=== PATIENT | male | born 1945 | race Caucasian/White ===

== ENCOUNTER → 2016-10-02 | Outpatient (CLI) | payer OTHER ==
[~2016-10-02] MED LIST: ALBU2.5V NPPB; ASPI-496 PO; ATOR80TA75 PO; DIVA250T PO; DONE10TA30 PO; GABA-827 PO; LEVO75TA5 PO; METF500T4 PO; METO200T3 PO; PRED20TA PO; REGADENOSON 0.4 MG/5 ML SYRINGE ONE; TAMS0.4C2 PO; TOPI100T94 PO
== END | disposition home or self-care (01) ==
LOC: CFH 08:39
PROVIDERS: ATTEND Internal Medicine Cardiovascular Disease
DX: I25.89 Other forms of chronic ischemic heart disease (principal); Z95.1 Presence of aortocoronary bypass graft
CPT/HCPCS: 78452; 93017; A9502; J2785

== ENCOUNTER 2017-03-06 05:54 | Day surgery (SDC) | payer OTHER ==
[2017-03-05 13:32] LABS: HEMATOCRIT 42.2 % (39.2-51.8); HEMOGLOBIN 14.1 g/dL (13.7-18.0)
[2017-03-05 13:36] LABS: ASPARTATE AMINO TRANSFERASE 8 U/L (15-37); BLOOD UREA NITROGEN 23 mg/dL (7-18)
[~2017-03-06] VITALS: Ht 162.6 cm; Wt 82.3 kg
[~2017-03-06 05:54] MED LIST changes: +ATOR-2 PO; -ATOR80TA75 PO; +DIVA500T4 PO; -DONE10TA30 PO; +DONE10TA56 PO; +FINA5TAB4 PO; +FLUO40CA2 PO; +HYDR25TA11 PO; +HYDR50TA13 PO; -METO200T3 PO; +METO200T5 PO; +PROP60TA PO; -REGADENOSON 0.4 MG/5 ML SYRINGE ONE; +TOPI100T8 PO; -TOPI100T94 PO
[2017-03-06] MEDS ORDERED: INSULIN ASPART 100 UNITS/ML, PEN SQ-INSULIN SCH (06:00)
[2017-03-06 06:10] VITALS: BP_SYST 131; BP_SYST 142; BP_DIAS 87; BP_DIAS 91
[2017-03-06] MEDS ORDERED: CHLORHEXIDINE MOUTHWASH 15 ML UDC MM SCH (06:30)
[2017-03-06] MEDS ORDERED: ONDANSETRON 2MG/ML, 2ML ONE (06:44)
[2017-03-06] MEDS ORDERED: SUCCINYLCHOLINE 20 MG/ML, 10ML ONE (06:44)
[2017-03-06] MEDS ORDERED: DEXAMETHASONE 4 MG/ML, 1ML ONE (06:44)
[2017-03-06] MEDS ORDERED: PROPOFOL 10 MG/ML, 20ML ONE ×2 (06:44→07:57)
[2017-03-06] MEDS ORDERED: FENTANYL PF 100 MCG/2ML ONE ×3 (06:45→09:19)
[2017-03-06] MEDS ORDERED: DIPHENHYDRAMINE 50 MG/ML, 1ML ONE (08:52)
[2017-03-06] MEDS ORDERED: OXYcodone 5 MG/5 ML ORAL.SOL UDC ONE ×2 (08:52→09:19)
[2017-03-06] MEDS ORDERED: MUPIROCIN OINT 2%, 22GM TP SCH (09:00)
[2017-03-06] MEDS ORDERED: SODIUM CHLORIDE FLUSH 10ML SYR IVF SCH (09:00)
[2017-03-06] MEDS ORDERED: OXYcodone 5 MG/5 ML ORAL.SOL UDC PO PRN ×2 (09:30)
[2017-03-06] MEDS ORDERED: LABETALOL 5MG/ML, 20ML IV PRN (09:30)
[2017-03-06] MEDS ORDERED: DIPHENHYDRAMINE 50 MG/ML, 1ML IVPush ONE (09:30)
[2017-03-06] MEDS ORDERED: PROMETHAZINE 25 MG/ML, 1ML IV PRN (09:30)
[2017-03-06] MEDS ORDERED: MIDAZOLAM 1 MG/ML, 2ML IV PRN (09:30)
[2017-03-06] MEDS ORDERED: HYDROmorphone 1 MG/ML, 1ML IV PRN ×2 (09:30)
[2017-03-06] MEDS ORDERED: FENTANYL PF 100 MCG/2ML IV PRN ×2 (09:30)
[2017-03-06] MEDS ORDERED: ONDANSETRON 2MG/ML, 2ML IVPush PRN ×2 (09:30)
[2017-03-06] MEDS ORDERED: hydrALAzine 20 MG/ML, 1ML IV PRN (09:30)
[2017-03-07] MEDS ORDERED: CEFUROXIME 1.5 GM in SODIUM CHLORIDE 0.9% 50 ML IVPB PRN (07:30)
== END 2017-03-06 14:01 | disposition home or self-care (01) ==
LOC: 5SO 05:54 → UNDOADMIN 05:54 → OUT 05:54 → CCU 07:20 → 5SO 07:20 → EDSTATUS 07:30 → 5SO 10:18 → CCU 10:18 → OUT 14:01 → UNDODISIN 14:01
PROVIDERS: ATTEND Thoracic Surgery (Cardiothoracic Vascular Surgery)
DX: T82.847A Pain due to cardiac prosthetic devices, implants and grafts, initial encounter (principal); I10 Essential (primary) hypertension; N40.0 Benign prostatic hyperplasia without lower urinary tract symptoms; F03.90 Unspecified dementia, unspecified severity, without behavioral disturbance, psychotic disturbance, mood disturbance, and anxiety; E11.9 Type 2 diabetes mellitus without complications; Z95.1 Presence of aortocoronary bypass graft; G89.28 Other chronic postprocedural pain; Y83.8 Other surgical procedures as the cause of abnormal reaction of the patient, or of later complication, without mention of misadventure at the time of the procedure; Y92.89 Other specified places as the place of occurrence of the external cause
CPT/HCPCS: 36415; 71010; 71020; 80053; 81003; 82962; 83036; 85025; 85610; 85730; 86850; 86900; 86923; 93005; J0697; J1100; J2405; J2704; J3010; J0330; J1200

== ENCOUNTER 2017-09-14 09:23 | Emergency (ER) | payer OTHER ==
[~2017-09-14] VITALS: Ht 165.1 cm; Wt 97.8 kg
[~2017-09-14 09:23] MED LIST changes: +CLON0.5T PO; +METO200T47 PO; -METO200T5 PO; +OLAN5TAB9 PO; +ROPI0.2537 PO
[2017-09-14 09:25] VITALS: BP 143/86
[2017-09-14] MEDS ORDERED: METHOCARBAMOL 750 MG TABLET PO ONE (10:00)
[2017-09-14] MEDS ORDERED: KETOROLAC 30 MG/1 ML IM ONE (10:00)
[2017-09-14] MEDS ORDERED: OXYcodone/APAP 5/325MG TABLET PO ONE (10:00)
[2017-09-14] MEDS ORDERED: OXYcodone/APAP 5/325MG TABLET ONE (10:01)
[2017-09-14] MEDS ORDERED: METHOCARBAMOL 750 MG TABLET ONE (10:02)
[2017-09-14] MEDS ORDERED: KETOROLAC 30 MG/1 ML ONE (10:02)
== END 2017-09-14 11:20 | disposition home or self-care (01) ==
LOC: ED 10:18
DX: G89.29 Other chronic pain (principal); M54.5 Low back pain; I71.4 Abdominal aortic aneurysm, without rupture; E11.9 Type 2 diabetes mellitus without complications; E78.5 Hyperlipidemia, unspecified; I10 Essential (primary) hypertension; I25.10 Atherosclerotic heart disease of native coronary artery without angina pectoris; J44.9 Chronic obstructive pulmonary disease, unspecified; M19.90 Unspecified osteoarthritis, unspecified site; Z95.1 Presence of aortocoronary bypass graft; Z98.1 Arthrodesis status
CPT/HCPCS: 72110; 96372; 99284; J1885

== ENCOUNTER → 2017-11-25 | Outpatient (CLI) | payer OTHER ==
[~2017-11-25] MED LIST changes: -METF500T4 PO; +METF500T5 PO
[2017-11-25 12:52] LABS: BASOPHILS # (AUTO) 0.05 x10^3/uL (0-0.1); BASOPHILS % (AUTO) 1 % (0-1); EOSINOPHILS # (AUTO) 0.39 x10^3/uL (0-0.4); EOSINOPHILS % (AUTO) 4 % (1-7); LYMPHOCYTES % (AUTO) 28 % (22-44); MD NO; MEAN CORPUSCULAR HEMOGLOBIN 33.9 pg (27.5-34.5); MEAN CORPUSCULAR HGB CONC 33.7 g/dL (33.2-36.2); MEAN CORPUSCULAR VOLUME 100.6 fL (81-97); MEAN PLATELET VOLUME 8.7 fL (7.4-10.4); MONOCYTES # (AUTO) 0.54 x10^3/uL (0.2-0.8); MONOCYTES % (AUTO) 5 % (2-9); NEUTROPHILS # (AUTO) 6.22 x10^3/uL (1.8-6.8); NEUTROPHILS % (AUTO) 62 % (42-75); PLATELET COUNT 288 x10^3/uL (130-400); RED BLOOD COUNT 4.25 x10^6/uL (4.38-5.82); RED CELL DISTRIBUTION WIDTH 13.9 % (9.4-14.8)
[2017-11-25 12:58] LABS: ALANINE AMINOTRANSFERASE 44 U/L (12-78); ALBUMIN 3.8 g/dL (3.4-5.0); ANION GAP 7 mmol/L (5-15); CALCIUM 9.1 mg/dL (8.5-10.1); CHLORIDE 104 mmol/L (98-107); CHOLESTEROL, TOTAL 167 mg/dL (140-239); CREATININE 1.16 mg/dL (0.7-1.3)
[2017-11-25 13:04] LABS: HEMOGLOBIN A1C 7.5 % (4.2-6.3)
[2017-11-25 13:08] LABS: ALKALINE PHOSPHATASE 68 U/L (45-117); BILIRUBIN,TOTAL 0.4 mg/dL (0.2-1.0); CHOL/HDL RATIO 3.5; HDL CHOL % 29 % (26-37); HDL CHOLESTEROL (DIRECT) 48 mg/dL (40-60); LDL CHOLESTEROL,CALCULATED 58 mg/dL (54-169); LDL/HDL RATIO 1.2 (0.5-3.0); MICROSCOPIC NOT IND; TOTAL PROTEIN 7.4 g/dL (6.4-8.2); TRIGLYCERIDES 307 mg/dL (50-200); VLDL CHOLESTEROL 61 mg/dL (0-25)
[2017-11-25 13:18] LABS: CULTURE INDICATED? NO
== END | disposition home or self-care (01) ==
LOC: CFH 10:16
PROVIDERS: ATTEND Family Medicine
DX: E11.8 Type 2 diabetes mellitus with unspecified complications (principal); N40.0 Benign prostatic hyperplasia without lower urinary tract symptoms; I25.10 Atherosclerotic heart disease of native coronary artery without angina pectoris; E03.9 Hypothyroidism, unspecified; E78.5 Hyperlipidemia, unspecified
CPT/HCPCS: 36415; 80053; 80061; 81003; 82043; 83036; 84153; 84443; 85025

== ENCOUNTER → 2017-11-25 | Outpatient (CLI) | payer OTHER | END | disposition home or self-care (01) | LOC: CFH 10:03 | PROVIDERS: ATTEND Family Medicine | DX: I25.10 Atherosclerotic heart disease of native coronary artery without angina pectoris (principal); I71.4 Abdominal aortic aneurysm, without rupture; F31.9 Bipolar disorder, unspecified; R94.31 Abnormal electrocardiogram [ECG] [EKG] | CPT/HCPCS: 93005 ==

== ENCOUNTER 2018-01-13 15:21 | Inpatient (IN) | payer OTHER ==
[~2018-01-13] VITALS: Ht 165.1 cm; Wt 101.4 kg
[~2018-01-13 15:21] MED LIST changes: +METF500T17 PO; -METF500T5 PO; -ROPI0.2537 PO; +ROPI0.254 PO
[2018-01-13 16:24] LABS: BASOPHILS # (AUTO) 0.05 x10^3/uL (0-0.1); BASOPHILS % (AUTO) 1 % (0-1); EOSINOPHILS # (AUTO) 0.53 x10^3/uL (0-0.4); EOSINOPHILS % (AUTO) 7 % (1-7); LYMPHOCYTES # (AUTO) 2.31 x10^3/uL (1-3.4); LYMPHOCYTES % (AUTO) 31 % (22-44); MD NO; MEAN CORPUSCULAR HEMOGLOBIN 33.4 pg (27.5-34.5); MEAN CORPUSCULAR HGB CONC 33.3 g/dL (33.2-36.2); MEAN CORPUSCULAR VOLUME 100.4 fL (81-97); MEAN PLATELET VOLUME 9.1 fL (7.4-10.4); MONOCYTES # (AUTO) 0.56 x10^3/uL (0.2-0.8); MONOCYTES % (AUTO) 7 % (2-9); NEUTROPHILS # (AUTO) 4.13 x10^3/uL (1.8-6.8); NEUTROPHILS % (AUTO) 54 % (42-75); PLATELET COUNT 240 x10^3/uL (130-400); RED BLOOD COUNT 3.89 x10^6/uL (4.38-5.82)
[2018-01-13 16:31] LABS: ANION GAP 8 mmol/L (5-15); CALCIUM 8.8 mg/dL (8.5-10.1); CHLORIDE 102 mmol/L (98-107); CREATININE 0.94 mg/dL (0.7-1.3)
[2018-01-13 17:14] LABS: MICROSCOPIC NOT IND
[2018-01-13] MEDS ORDERED: ACET-709 PO (17:20)
[2018-01-13] MEDS ORDERED: CYCL5TAB PO (17:20)
[2018-01-13] MEDS ORDERED: DICL150D4 PO (17:20)
[2018-01-13 17:27] LABS: CULTURE INDICATED? NO
[2018-01-13] MEDS ORDERED: SODIUM CHLORIDE FLUSH 10ML SYR IVF PRN (18:30)
[2018-01-13 19:00] VITALS: BP 142/89
[2018-01-13] MEDS ORDERED: LABETALOL 5MG/ML, 20ML IVPush PRN (19:00)
[2018-01-13] MEDS ORDERED: DOCUSATE 100 MG CAPSULE PO PRN (19:00)
[2018-01-13] MEDS ORDERED: ENALAPRILAT 1.25 MG/ML, 2ML IVPush PRN (19:00)
[2018-01-13] MEDS ORDERED: IBUPROFEN 600 MG TABLET PO PRN (19:00)
[2018-01-13] MEDS ORDERED: ROPINIROLE MC SCH (20:00)
[2018-01-13] MEDS ORDERED: ROPINIROLE HCL PO SCH (21:00)
[2018-01-13] MEDS: CYCLOBENZAPRINE 10 MG TABLET PO SCH (21:00)
[2018-01-13] MEDS ORDERED: ROPINIROLE HCL 0.25 MG PO SCH (21:00)
[2018-01-13] MEDS: TYLENOL WITH CODEINE HOMEMEDPO SCH (21:00)
[2018-01-13] MEDS: ROPINIROLE 0.25MG TABLET PO SCH (21:00)
[2018-01-13] MEDS ORDERED: ROPINIROLE 0.5MG TABLET ONE (21:46)
[2018-01-13] MEDS: ATORVASTATIN 80 MG TABLET PO SCH (21:52)
[2018-01-13] MEDS: DICLOFENAC SODIUM 75 MG TABLET.DR PO SCH (21:53)
[2018-01-13] MEDS: DIVALPROEX 500 MG TAB.ER.24H PO SCH (21:53)
[2018-01-13] MEDS: HEPARIN 5,000 UNITS/ML, 1ML SQ SCH (21:54)
[2018-01-13 22:46] VITALS: BP 142/89
[2018-01-14 02:23] VITALS: BP 144/88
[2018-01-14] MEDS: TYLENOL WITH CODEINE HOMEMEDPO SCH ×4 (06:00→20:09)
[2018-01-14] MEDS: HEPARIN 5,000 UNITS/ML, 1ML SQ SCH ×3 (06:36→20:04)
[2018-01-14] MEDS: LEVOTHYROXINE 75 MCG TABLET PO SCH (06:36)
[2018-01-14 07:03] VITALS: BP 140/93
[2018-01-14] MEDS: DONEPEZIL 10 MG TABLET PO SCH (08:57)
[2018-01-14] MEDS: DOCUSATE 100 MG CAPSULE PO SCH ×2 (08:58→20:04)
[2018-01-14] MEDS: PROPRANOLOL 60 MG TABLET PO SCH (08:58)
[2018-01-14] MEDS: ASPIRIN 81 MG TABLET EC PO SCH (08:58)
[2018-01-14] MEDS: DIVALPROEX 500 MG TAB.ER.24H PO SCH ×2 (08:58→20:04)
[2018-01-14] MEDS: TAMSULOSIN 0.4 MG CAP.ER.24H PO SCH (08:58)
[2018-01-14] MEDS: CYCLOBENZAPRINE 10 MG TABLET PO SCH ×2 (08:58→20:05)
[2018-01-14] MEDS: DICLOFENAC SODIUM 75 MG TABLET.DR PO SCH ×2 (08:59→20:05)
[2018-01-14] MEDS: FLUOXETINE HCL 20 MG CAPSULE PO SCH (08:59)
[2018-01-14] MEDS: POLYETHYLENE GLYCOL 17 GM PACKET PO SCH (09:58)
[2018-01-14] MEDS: ACETAMINOPHEN 325 MG TABLET PO PRN ×2 (11:25→20:19)
[2018-01-14 13:45] VITALS: BP 132/88
[2018-01-14 19:38] VITALS: BP 157/94
[2018-01-14] MEDS: ATORVASTATIN 80 MG TABLET PO SCH (20:05)
[2018-01-14] MEDS: ROPINIROLE 0.25MG TABLET PO SCH (20:05)
[2018-01-15 00:14] VITALS: BP 171/82
[2018-01-15] MEDS: TYLENOL WITH CODEINE HOMEMEDPO SCH ×4 (05:41→21:00)
[2018-01-15] MEDS: HEPARIN 5,000 UNITS/ML, 1ML SQ SCH ×3 (05:45→20:51)
[2018-01-15] MEDS: LEVOTHYROXINE 75 MCG TABLET PO SCH (05:45)
[2018-01-15 07:02] VITALS: BP 139/86
[2018-01-15] MEDS: TAMSULOSIN 0.4 MG CAP.ER.24H PO SCH (09:00)
[2018-01-15] MEDS ORDERED: LISINOPRIL 10 MG TABLET PO SCH (09:00)
[2018-01-15] MEDS: POLYETHYLENE GLYCOL 17 GM PACKET PO SCH (09:29)
[2018-01-15] MEDS: DIVALPROEX 500 MG TAB.ER.24H PO SCH ×2 (09:30→20:52)
[2018-01-15] MEDS: FLUOXETINE HCL 20 MG CAPSULE PO SCH (09:30)
[2018-01-15] MEDS: PROPRANOLOL 60 MG TABLET PO SCH (09:30)
[2018-01-15] MEDS: ASPIRIN 81 MG TABLET EC PO SCH (09:30)
[2018-01-15] MEDS: CYCLOBENZAPRINE 10 MG TABLET PO SCH ×2 (09:31→20:52)
[2018-01-15] MEDS: DONEPEZIL 10 MG TABLET PO SCH (09:31)
[2018-01-15] MEDS: ACETAMINOPHEN 325 MG TABLET PO PRN (09:31)
[2018-01-15] MEDS: DOCUSATE 100 MG CAPSULE PO SCH ×2 (09:32→20:52)
[2018-01-15] MEDS: DICLOFENAC SODIUM 75 MG TABLET.DR PO SCH ×2 (09:33→20:53)
[2018-01-15 12:13] VITALS: BP 119/77
[2018-01-15 19:16] VITALS: BP 124/86
[2018-01-15] MEDS: ROPINIROLE 0.25MG TABLET PO SCH (20:53)
[2018-01-15] MEDS: ATORVASTATIN 80 MG TABLET PO SCH (20:53)
[2018-01-16 01:09] VITALS: BP 126/88
[2018-01-16] MEDS: ACETAMINOPHEN 325 MG TABLET PO PRN ×4 (02:37→21:58)
[2018-01-16] MEDS: LEVOTHYROXINE 75 MCG TABLET PO SCH (05:41)
[2018-01-16] MEDS: HEPARIN 5,000 UNITS/ML, 1ML SQ SCH ×3 (05:41→20:10)
[2018-01-16] MEDS: TYLENOL WITH CODEINE HOMEMEDPO SCH ×4 (05:43→20:12)
[2018-01-16 08:11] VITALS: BP 109/71
[2018-01-16] MEDS: PROPRANOLOL 60 MG TABLET PO SCH (08:23)
[2018-01-16] MEDS: DICLOFENAC SODIUM 75 MG TABLET.DR PO SCH ×2 (08:23→20:11)
[2018-01-16] MEDS: DIVALPROEX 500 MG TAB.ER.24H PO SCH ×2 (08:24→20:10)
[2018-01-16] MEDS: ASPIRIN 81 MG TABLET EC PO SCH (08:24)
[2018-01-16] MEDS: CYCLOBENZAPRINE 10 MG TABLET PO SCH ×2 (08:24→20:10)
[2018-01-16] MEDS: DONEPEZIL 10 MG TABLET PO SCH (08:25)
[2018-01-16] MEDS: DOCUSATE 100 MG CAPSULE PO SCH ×2 (08:25→20:11)
[2018-01-16] MEDS: FLUOXETINE HCL 20 MG CAPSULE PO SCH (08:25)
[2018-01-16] MEDS: POLYETHYLENE GLYCOL 17 GM PACKET PO SCH (08:25)
[2018-01-16] MEDS: TAMSULOSIN 0.4 MG CAP.ER.24H PO SCH (08:25)
[2018-01-16 14:24] VITALS: BP 111/70
[2018-01-16 19:46] VITALS: BP 107/69
[2018-01-16] MEDS: ATORVASTATIN 80 MG TABLET PO SCH (20:11)
[2018-01-16] MEDS: ROPINIROLE 0.25MG TABLET PO SCH (20:11)
[2018-01-17] MEDS: HYDROcodone/APAP 5/325 TABLET PO PRN ×6 (00:06→22:28)
[2018-01-17 01:06] VITALS: BP 151/94
[2018-01-17] MEDS: TYLENOL WITH CODEINE HOMEMEDPO SCH ×4 (06:00→19:33)
[2018-01-17] MEDS: HEPARIN 5,000 UNITS/ML, 1ML SQ SCH ×3 (06:15→19:31)
[2018-01-17] MEDS: LEVOTHYROXINE 75 MCG TABLET PO SCH (06:15)
[2018-01-17] MEDS: DIVALPROEX 500 MG TAB.ER.24H PO SCH ×2 (08:28→19:30)
[2018-01-17] MEDS: FLUOXETINE HCL 20 MG CAPSULE PO SCH (08:28)
[2018-01-17] MEDS: ASPIRIN 81 MG TABLET EC PO SCH (08:28)
[2018-01-17] MEDS: PROPRANOLOL 60 MG TABLET PO SCH (08:28)
[2018-01-17] MEDS: TAMSULOSIN 0.4 MG CAP.ER.24H PO SCH (08:28)
[2018-01-17] MEDS: CYCLOBENZAPRINE 10 MG TABLET PO SCH ×2 (08:28→19:30)
[2018-01-17] MEDS: DICLOFENAC SODIUM 75 MG TABLET.DR PO SCH ×2 (08:29→19:30)
[2018-01-17] MEDS: DOCUSATE 100 MG CAPSULE PO SCH ×2 (08:29→19:30)
[2018-01-17] MEDS: POLYETHYLENE GLYCOL 17 GM PACKET PO SCH (08:29)
[2018-01-17] MEDS: DONEPEZIL 10 MG TABLET PO SCH (08:29)
[2018-01-17 08:33] VITALS: BP 123/78
[2018-01-17] MEDS: ACETAMINOPHEN 325 MG TABLET PO PRN (10:49)
[2018-01-17 13:30] VITALS: BP 99/61
[2018-01-17 19:11] VITALS: BP 128/84
[2018-01-17] MEDS: ROPINIROLE 0.25MG TABLET PO SCH (19:29)
[2018-01-17] MEDS: ATORVASTATIN 80 MG TABLET PO SCH (19:30)
[2018-01-17] MEDS ORDERED: LORazepam 0.5MG TABLET PO ONE (20:00)
[2018-01-18 00:36] VITALS: BP 135/85
[2018-01-18] MEDS: HYDROcodone/APAP 5/325 TABLET PO PRN ×4 (02:28→15:07)
[2018-01-18] MEDS: LEVOTHYROXINE 75 MCG TABLET PO SCH (05:56)
[2018-01-18] MEDS: HEPARIN 5,000 UNITS/ML, 1ML SQ SCH ×3 (05:56→21:21)
[2018-01-18] MEDS: TYLENOL WITH CODEINE HOMEMEDPO SCH ×3 (05:56→15:03)
[2018-01-18 07:08] VITALS: BP 158/79
[2018-01-18] MEDS: TAMSULOSIN 0.4 MG CAP.ER.24H PO SCH (09:00)
[2018-01-18] MEDS: PROPRANOLOL 60 MG TABLET PO SCH (10:34)
[2018-01-18] MEDS: FLUOXETINE HCL 20 MG CAPSULE PO SCH (10:34)
[2018-01-18] MEDS: POLYETHYLENE GLYCOL 17 GM PACKET PO SCH (10:34)
[2018-01-18] MEDS: DONEPEZIL 10 MG TABLET PO SCH (10:35)
[2018-01-18] MEDS: DOCUSATE 100 MG CAPSULE PO SCH ×2 (10:35→21:20)
[2018-01-18] MEDS: ASPIRIN 81 MG TABLET EC PO SCH (10:35)
[2018-01-18] MEDS: DIVALPROEX 500 MG TAB.ER.24H PO SCH ×2 (10:35→21:20)
[2018-01-18] MEDS: DICLOFENAC SODIUM 75 MG TABLET.DR PO SCH ×2 (10:35→21:20)
[2018-01-18] MEDS: CYCLOBENZAPRINE 10 MG TABLET PO SCH ×2 (10:37→21:19)
[2018-01-18 13:24] VITALS: BP 95/61
[2018-01-18] MEDS: ACETAMINOPHEN 325 MG TABLET PO PRN (17:00)
[2018-01-18] MEDS ORDERED: LORazepam 0.5MG TABLET PO ONE (18:30)
[2018-01-18] MEDS ORDERED: HYDROcodone/APAP 5/325 TABLET PO PRN (18:30)
[2018-01-18 19:10] VITALS: BP 103/71
[2018-01-18] MEDS: ATORVASTATIN 80 MG TABLET PO SCH (21:19)
[2018-01-18] MEDS: APAP/CODEINE 300/30MG TABLET PO SCH (21:19)
[2018-01-18] MEDS: ROPINIROLE 0.25MG TABLET PO SCH (21:20)
[2018-01-19 01:29] VITALS: BP 101/70
[2018-01-19] MEDS: ACETAMINOPHEN 325 MG TABLET PO PRN ×2 (03:39→07:52)
[2018-01-19] MEDS: HEPARIN 5,000 UNITS/ML, 1ML SQ SCH (05:03)
[2018-01-19] MEDS: APAP/CODEINE 300/30MG TABLET PO SCH ×2 (05:03→12:44)
[2018-01-19] MEDS: LEVOTHYROXINE 75 MCG TABLET PO SCH (05:03)
[2018-01-19 07:02] VITALS: BP 131/85
[2018-01-19] MEDS: POLYETHYLENE GLYCOL 17 GM PACKET PO SCH (07:50)
[2018-01-19] MEDS: DICLOFENAC SODIUM 75 MG TABLET.DR PO SCH (07:50)
[2018-01-19] MEDS: PROPRANOLOL 60 MG TABLET PO SCH (07:51)
[2018-01-19] MEDS: FLUOXETINE HCL 20 MG CAPSULE PO SCH (07:51)
[2018-01-19] MEDS: TAMSULOSIN 0.4 MG CAP.ER.24H PO SCH (07:51)
[2018-01-19] MEDS: ASPIRIN 81 MG TABLET EC PO SCH (07:51)
[2018-01-19] MEDS: DIVALPROEX 500 MG TAB.ER.24H PO SCH (07:51)
[2018-01-19] MEDS: DONEPEZIL 10 MG TABLET PO SCH (07:51)
[2018-01-19] MEDS: CYCLOBENZAPRINE 10 MG TABLET PO SCH (07:52)
[2018-01-19] MEDS: DOCUSATE 100 MG CAPSULE PO SCH (07:52)
[2018-01-19 12:18] VITALS: BP 116/77
== END 2018-01-19 17:09 | DRG 640 ==
LOC: ED 18:07 → EDIP 18:08 → INTOOBSV 18:08 → ED 18:11 → OBSVTOIN 18:41 → 3NE 19:10
PROVIDERS: ADMIT Student in an Organized Health Care Education/Training Program; ATTEND Student in an Organized Health Care Education/Training Program
DX: R62.7 Adult failure to thrive (principal); R53.2 Functional quadriplegia; R26.2 Difficulty in walking, not elsewhere classified; F03.90 Unspecified dementia, unspecified severity, without behavioral disturbance, psychotic disturbance, mood disturbance, and anxiety; I10 Essential (primary) hypertension; E03.9 Hypothyroidism, unspecified; N40.0 Benign prostatic hyperplasia without lower urinary tract symptoms; I25.10 Atherosclerotic heart disease of native coronary artery without angina pectoris; E11.9 Type 2 diabetes mellitus without complications; E78.5 Hyperlipidemia, unspecified; F31.9 Bipolar disorder, unspecified; G25.0 Essential tremor; G25.81 Restless legs syndrome; Z87.891 Personal history of nicotine dependence; Z86.73 Personal history of transient ischemic attack (TIA), and cerebral infarction without residual deficits; Z95.1 Presence of aortocoronary bypass graft; Z79.899 Other long term (current) drug therapy; J44.9 Chronic obstructive pulmonary disease, unspecified
CPT/HCPCS: 36415; 80048; 81003; 82040; 85025; 96372; 99285; G0378; J1644